=== PATIENT | male | born 1955 | race Caucasian/White ===

== ENCOUNTER 2018-02-17 14:10 | Emergency (ER) | payer OTHER ==
[~2018-02-17] VITALS: Ht 175.3 cm; Wt 86.0 kg
[~2018-02-17 14:10] MED LIST: DOXY100 PO; LISI-357 PO
[2018-02-17 14:14] VITALS: BP 187/94; PULSE 72; RESP 18; TEMP 98.9; O2SAT 99
[2018-02-17 14:30] VITALS: BP 190/84; PULSE 62; RESP 16; O2SAT 96
[2018-02-17] MEDS ORDERED: ONDANSETRON HCL 4 MG/2 ML VIAL IVP ONE (14:30)
[2018-02-17] MEDS ORDERED: SODIUM CHLORIDE 0.9% FLUSH 10 ML FLUSH IV FLUSH PRN (14:30)
[2018-02-17] MEDS ORDERED: SODIUM CHLOR 0.9% 1000 ML INJ 1,000 ML IV SCH (14:30)
--- NOTE | 2018-02-17 15:08 | PD ---
HPI Chief Complaint: Abdominal Pain Time Seen by Provider: 14:23 Travel History International Travel<30 days: No Contact w/Intl Traveler<30days: No Traveled to known affect area: No History of Present Illness HPI Patient is a 62 year old man who presents to the ER with complaints of abdominal pain. Patient reports that he has history of multiple abdominal hernia 's, reports that for the past 3 days, he has been having increased right lower abdominal pain. Patient reports that nothing makes pain better or worse. Reports that he has tried to follow up with doctor's for his hernia's but has not been able to establish care as he does not have a permanent address. Reports that he has been having fever/chills. Reports slight nausea and vomiting. Denies constipation/diarrhea. PFSH Past Medical History Asthma: Yes Bipolar Disorder: Yes High Cholesterol: Yes COPD: Yes Diminished Hearing: No Hypertension: Yes Ulcer: Yes Past Surgical History Genitourinary Surgery: Yes (BILATERAL IHR X8) Other Surgery: Yes (BENIGN CYST REMOVED UPPER BACK) Social History Alcohol Use: Yes (X2 PER YEAR) Tobacco Use: Yes (ppd) Substance Use: Yes (THC every other day, and cocaine use occasionally) Allergies-Medications (Allergen,Severity, Reaction): Coded Allergies: No Known Allergies (Verified Adverse Reaction, Unknown, 02/17/18) Reported Meds & Prescriptions Reported Meds & Active Scripts Active No Active Prescriptions or Reported Medications Review of Systems General / Constitutional: No: Fever Eyes: No: Visual changes HENT: No: Headaches Cardiovascular: No: Chest Pain or Discomfort Respiratory: No: Shortness of Breath Gastrointestinal: Positive: Nausea, Vomiting, Abdominal Pain Genitourinary: No: Dysuria Musculoskeletal: No: Pain Skin: No Rash Neurologic: No: Weakness Psychiatric: No: Depression Endocrine: No: Polydipsia Hematologic/Lymphatic: No: Easy Bruising Physical Exam Narrative GENERAL: moderate distress SKIN: Focused skin assessment warm/dry. HEAD: Atraumatic. Normocephalic. EYES: Pupils equal and round. No scleral icterus. No injection or drainage. ENT: No nasal bleeding or discharge. Mucous membranes pink and moist. NECK: Trachea midline. No JVD. CARDIOVASCULAR: Regular rate and rhythm. No murmur appreciated. RESPIRATORY: No accessory muscle use. Clear to auscultation. Breath sounds equal bilaterally. GASTROINTESTINAL: Abdomen soft, mild tenderness to RLQ with no rebound or guarding, nondistended. Hepatic and splenic margins not palpable. MUSCULOSKELETAL: No obvious deformities. No clubbing. No cyanosis. No edema. NEUROLOGICAL: Awake and alert. No obvious cranial nerve deficits. Motor grossly within normal limits. Normal speech. PSYCHIATRIC: Appropriate mood and affect; insight and judgment normal. Data Data Last Documented VS Vital Signs Date Time Temp Pulse Resp B/P (MAP) Pulse Ox O2 Delivery O2 Flow Rate FiO2 02/17/18 18:00 54 18 178/98 (124) 98 Room Air 02/17/18 14:14 98.9 Orders Orders Complete Blood Count With Diff (02/17/18 14:30) Comprehensive Metabolic Panel (02/17/18 14:30) Lipase (02/17/18 14:30) Lactic Acid (02/17/18 14:30) Prothrombin Time / Inr (Pt) (02/17/18 14:30) Act Partial Throm Time (Ptt) (02/17/18 14:30) Iv Access Insert/Monitor (02/17/18 14:30) Ecg Monitoring (02/17/18 14:30) Oximetry (02/17/18 14:30) NPO (02/17/18 14:30) Ondansetron Inj (Zofran Inj) (02/17/18 14:30) Sodium Chlor 0.9% 1000 Ml Inj (Ns 1000 M (02/17/18 14:30) Sodium Chloride 0.9% Flush (Ns Flush) (02/17/18 14:30) Electrocardiogram (02/17/18 14:30) Ct Abd/Pel W Iv Contrast(Rout) (02/17/18 14:56) Iohexol 350 Inj (Omnipaque 350 Inj) (02/17/18 18:13) Labs Laboratory Tests Test 02/17/18 14:34 White Blood Count 12.9 TH/MM3 Red Blood Count 5.33 MIL/MM3 Hemoglobin 15.5 GM/DL Hematocrit 45.6 % Mean Corpuscular Volume 85.6 FL Mean Corpuscular Hemoglobin 29.2 PG Mean Corpuscular Hemoglobin Concent 34.1 % Red Cell Distribution Width 14.1 % Platelet Count 299 TH/MM3 Mean Platelet Volume 8.0 FL Neutrophils (%) (Auto) 70.9 % Lymphocytes (%) (Auto) 20.4 % Monocytes (%) (Auto) 7.0 % Eosinophils (%) (Auto) 1.3 % Basophils (%) (Auto) 0.4 % Neutrophils # (Auto) 9.1 TH/MM3 Lymphocytes # (Auto) 2.6 TH/MM3 Monocytes # (Auto) 0.9 TH/MM3 Eosinophils # (Auto) 0.2 TH/MM3 Basophils # (Auto) 0.1 TH/MM3 CBC Comment DIFF FINAL Differential Comment Prothrombin Time 10.7 SEC Prothromb Time International Ratio 1.1 RATIO Activated Partial Thromboplast Time 29.4 SEC Blood Urea Nitrogen 15 MG/DL Creatinine 1.03 MG/DL Random Glucose 106 MG/DL Total Protein 8.3 GM/DL Albumin 3.8 GM/DL Calcium Level 9.5 MG/DL Alkaline Phosphatase 83 U/L Aspartate Amino Transf (AST/SGOT) 17 U/L Alanine Aminotransferase (ALT/SGPT) 16 U/L Total Bilirubin 0.5 MG/DL Sodium Level 140 MEQ/L Potassium Level 3.9 MEQ/L Chloride Level 103 MEQ/L Carbon Dioxide Level 29.0 MEQ/L Anion Gap 8 MEQ/L Estimat Glomerular Filtration Rate 73 ML/MIN Lactic Acid Level 1.8 mmol/L Lipase 134 U/L [facility] Medical Decision Making Medical Screen Exam Complete: Yes Emergency Medical Condition: Yes Medical Record Reviewed: Yes Interpretation(s) Vital Signs Date Time Temp Pulse Resp B/P (MAP) Pulse Ox O2 Delivery O2 Flow Rate FiO2 02/17/18 14:14 98.9 72 18 187/94 (125) 99 Differential Diagnosis appendicitis, gastroenteritis, colitis, uti Narrative Course During the course of the patients emergency department visit, the patients history, examination, and differential diagnosis were reviewed with the patient. The patient was placed on a phototypesetting equipment monitor with oximetry and frequent blood pressure monitoring. The patient had an IV access obtained and blood work sent for analysis. The patient was initially provided IV fluids, IV morphine as well as IV Zofran The patients laboratory studies were reviewed and remarkable for Laboratory Tests Test 02/17/18 14:34 White Blood Count 12.9 TH/MM3 (4.0-11.0) Red Blood Count 5.33 MIL/MM3 (4.50-5.90) Hemoglobin 15.5 GM/DL (13.0-17.0) Hematocrit 45.6 % (39.0-51.0) Mean Corpuscular Volume 85.6 FL (80.0-100.0) Mean Corpuscular Hemoglobin 29.2 PG (27.0-34.0) Mean Corpuscular Hemoglobin Concent 34.1 % (32.0-36.0) Red Cell Distribution Width 14.1 % (11.6-17.2) Platelet Count 299 TH/MM3 (150-450) Mean Platelet Volume 8.0 FL (7.0-11.0) Neutrophils (%) (Auto) 70.9 % (16.0-70.0) Lymphocytes (%) (Auto) 20.4 % (9.0-44.0) Monocytes (%) (Auto) 7.0 % (0.0-8.0) Eosinophils (%) (Auto) 1.3 % (0.0-4.0) Basophils (%) (Auto) 0.4 % (0.0-2.0) Neutrophils # (Auto) 9.1 TH/MM3 (1.8-7.7) Lymphocytes # (Auto) 2.6 TH/MM3 (1.0-4.8) Monocytes # (Auto) 0.9 TH/MM3 (0-0.9) Eosinophils # (Auto) 0.2 TH/MM3 (0-0.4) Basophils # (Auto) 0.1 TH/MM3 (0-0.2) CBC Comment DIFF FINAL Differential Comment Prothrombin Time 10.7 SEC (9.8-11.6) Prothromb Time International Ratio 1.1 RATIO Activated Partial Thromboplast Time 29.4 SEC (24.3-30.1) Blood Urea Nitrogen 15 MG/DL (7-18) Creatinine 1.03 MG/DL (0.60-1.30) Random Glucose 106 MG/DL (74-106) Total Protein 8.3 GM/DL (6.4-8.2) Albumin 3.8 GM/DL (3.4-5.0) Calcium Level 9.5 MG/DL (8.5-10.1) Alkaline Phosphatase 83 U/L (45-117) Aspartate Amino Transf (AST/SGOT) 17 U/L (15-37) Alanine Aminotransferase (ALT/SGPT) 16 U/L (12-78) Total Bilirubin 0.5 MG/DL (0.2-1.0) Sodium Level 140 MEQ/L (136-145) Potassium Level 3.9 MEQ/L (3.5-5.1) Chloride Level 103 MEQ/L (98-107) Carbon Dioxide Level 29.0 MEQ/L (21.0-32.0) Anion Gap 8 MEQ/L (5-15) Estimat Glomerular Filtration Rate 73 ML/MIN (>89) Lactic Acid Level 1.8 mmol/L (0.4-2.0) Lipase 134 U/L (73-393) . Radiology studies were reviewed and remarkable for Last Impressions Abdomen/Pelvis CT 02/17/18 1456 Signed Impressions: Service Date/Time: Saturday, February 17, 2018 18:08 - CONCLUSION: 1. Extensive juxtarenal and infrarenal abdominal aortic aneurysm measuring 11.4 cm in sagittal dimension by 4.7 cm in AP dimension by 4.1 cm in transverse dimension. There is aneurysmal dilatation of the common iliac arteries bilaterally measuring 2.4 cm on the right and 2.4 cm on the left. The common femoral arteries are also diffusely dilated and measure 1.9 cm each. 2. Uncomplicated colonic diverticulosis. 3. Left renal cysts. 4. Enlarged prostate. 5. Degenerative changes throughout the lumbar spine. Anton Andres MD call made to Dr. Hunter to review case -patient can follow-up with him in his clinic on Sunday. Patient with low risk for rupture given width of his aneurysm I reviewed all labs and all studies as well as all incidental findings with patient, he will be discharged to home with outpatient follow up Diagnosis Primary Impression: Abdominal aneurysm Admitting Information Admitting Physician Requests: Admit Referrals: Anton Hunter MD Patient Instructions: General Instructions Additional Instructions: Please provide patient with a copy of their lab work and studies at discharge* * Please follow up with your primary care doctor in 2-3 days Return to the ER if symptoms worsen or progress Return to the ER as needed Please follow with Dr. Hunter in his clinic on Sunday, please call for an appointment on Sunday Scripts No Active Prescriptions or Reported Meds Disposition: 01 DISCHARGE HOME Condition: Stable Irene Alfaro February 17, 2018 15:08
[2018-02-17 15:35] LABS: AUTOMATED NEUTROPHIL # 9.1 TH/MM3 (1.8-7.7); BASOPHIL # 0.1 TH/MM3 (0-0.2); BASOPHIL % 0.4 % (0.0-2.0); EOSINOPHIL # 0.2 TH/MM3 (0-0.4); EOSINOPHIL % 1.3 % (0.0-4.0); HEMATOCRIT 45.6 % (39.0-51.0); HEMOGLOBIN 15.5 GM/DL (13.0-17.0); LYMPH % 20.4 % (9.0-44.0); LYMPHOCYTE # 2.6 TH/MM3 (1.0-4.8); MEAN CELL VOLUME 85.6 FL (80.0-100.0); MEAN CORPUSCULAR HEMOGLOBIN 29.2 PG (27.0-34.0); MEAN CORPUSCULAR HGB CONC 34.1 % (32.0-36.0); MONOCYTE # 0.9 TH/MM3 (0-0.9); NEUT % 70.9 % (16.0-70.0); PLATELET COUNT 299 TH/MM3 (150-450); RED BLOOD COUNT 5.33 MIL/MM3 (4.50-5.90); RED CELL DISTRIBUTION WIDTH 14.1 % (11.6-17.2); WHITE BLOOD COUNT 12.9 TH/MM3 (4.0-11.0)
[2018-02-17 15:53] LABS: INTERNATIONAL NORMALIZED RATIO 1.1 RATIO; PROTHROMBIN TIME - PATIENT 10.7 SEC (9.8-11.6)
[2018-02-17 15:54] VITALS: RESP 16; O2SAT 98
[2018-02-17 15:54] LABS: ALBUMIN 3.8 GM/DL (3.4-5.0); ALT (GPT) 16 U/L (12-78); AST (GOT) 17 U/L (15-37); BLOOD UREA NITROGEN 15 MG/DL (7-18); CALCIUM 9.5 MG/DL (8.5-10.1); CHLORIDE 103 MEQ/L (98-107); CREATININE 1.03 MG/DL (0.60-1.30); GLOMERULAR FILTRATION RATE 73 ML/MIN (>89); GLUCOSE,RANDOM 106 MG/DL (74-106); SODIUM (NA) 140 MEQ/L (136-145)
[2018-02-17 15:55] LABS: ALKALINE PHOSPHATASE 83 U/L (45-117); TOTAL BILIRUBIN ADULT 0.5 MG/DL (0.2-1.0); TOTAL PROTEIN 8.3 GM/DL (6.4-8.2)
[2018-02-17 16:00] VITALS: BP 184/92; PULSE 58; RESP 18; O2SAT 98
[2018-02-17 18:00] VITALS: BP 178/98; PULSE 54; RESP 18; O2SAT 98
[2018-02-17] MEDS ORDERED: IOHEXOL 350 MG/ML 10 ML VIAL (for RAD DIAG) IVCONTRAST ONE (18:13)
--- NOTE | 2018-02-17 18:33 | RADRPT ---
EXAM DATE/TIME: 02/17/2018 18:08 [facility] COMPARISON: No previous studies available for comparison. INDICATIONS : Right lower quadrant pain. IV CONTRAST: 92 cc Omnipaque 350 (iohexol) IV ORAL CONTRAST: No oral contrast ingested. RADIATION DOSE: 9.16 CTDIvol (mGy) MEDICAL HISTORY : None SURGICAL HISTORY : Inguinal hernia repair. ENCOUNTER: Initial ACUITY: 1 day PAIN SCALE: 6/10 LOCATION: Right lower quadrant abdomen TECHNIQUE: Volumetric scanning of the abdomen and pelvis was performed. Using automated exposure control and ad justment of the mA and/or kV according to patient size, radiation dose was kept as low as reasonably achievable to obtain optimal diagnostic quality images. DICOM format image data is available electro nically for review and comparison. FINDINGS: LOWER LUNGS: The visualized lower lungs are clear. LIVER: Homogeneous density without lesion. There is no dilation of the biliary tree. No calcified gallston es. SPLEEN: Normal size without lesion. PANCREAS: Within normal limits. KIDNEYS: Normal in size and shape. There is no mass, stone or hydronephrosis. There are 2 left upper pole crystal al cysts. The larger measuring 2.1 cm ADRENAL GLANDS: Within normal limits. VASCULAR: There is an extensive juxtarenal and infrarenal abdominal aortic aneurysm measuring 11.4 cm in sagitt al dimension by 4.7 cm in AP dimension by 4.1 cm in transverse dimension. There is aneurysmal dilatat ion of the common iliac arteries bilaterally measuring 2.4 cm on the right and 2.4 cm on the left. Th e common femoral arteries are also diffusely dilated and measure 1.9 cm each. BOWEL/MESENTERY: Uncomplicated colonic diverticulosis is noted. No acute diverticulitis is noted. ABDOMINAL WALL: Within normal limits. RETROPERITONEUM: There is no lymphadenopathy. BLADDER: No wall thickening or mass. REPRODUCTIVE: The prostate gland is prominent. INGUINAL: There is no lymphadenopathy or hernia. Bilateral inguinal hernia repairs have been performed. MUSCULOSKELETAL: Degenerative changes are noted throughout the lumbar spine. CONCLUSION: 1. Extensive juxtarenal and infrarenal abdominal aortic aneurysm measuring 11.4 cm in sagittal dimens ion by 4.7 cm in AP dimension by 4.1 cm in transverse dimension. There is aneurysmal dilatation of th e common iliac arteries bilaterally measuring 2.4 cm on the right and 2.4 cm on the left. The common femoral arteries are also diffusely dilated and measure 1.9 cm each. 2. Uncomplicated colonic diverticulosis. 3. Left renal cysts. 4. Enlarged prostate. 5. Degenerative changes throughout the lumbar spine. Anton Andres MD on February 17, 2018 at 18:23 Board Certified Radiologist. This report was verified electronically.
[2018-02-17 19:19] VITALS: BP 180/90; PULSE 63; RESP 17; O2SAT 98
--- NOTE | 2018-02-18 10:45 | EKG ---
Date Performed: 02/17/2018 Time Performed: 15:07:13 PTAGE: 62 years EKG: Sinus rhythm WITH OCCASIONAL SUPRAVENTRICULAR PREMATURE COMPLEXES POSSIBLE LEFT ATRIAL ENLARGEMENT NONSPECIFIC T- WAVE ABNORMALITY PROLONGED QT INTERVAL ABNORMAL ECG Since the PREVIOUS TRACING , no significant change noted PREVIOUS TRACIN07/31/2016 12.13 DOCTOR: Vamshi Luciano Interpretating Date/Time 02/18/2018 10:42:41
== END 2018-02-17 19:33 | disposition home or self-care (01) ==
LOC: NEPC 14:10
DX: I71.4 Abdominal aortic aneurysm, without rupture (principal); K57.30 Diverticulosis of large intestine without perforation or abscess without bleeding; N28.1 Cyst of kidney, acquired; F17.200 Nicotine dependence, unspecified, uncomplicated
CPT/HCPCS: 74177; 80053; 83605; 83690; 85025; 85610; 85730; 93005; 96361; 96374; 99285; J2405; J7030; Q9967